=== PATIENT | male | born 1970 | race Asian ===

== ENCOUNTER 2017-05-01 11:51 | Emergency (ER) | payer MEDICAID ==
--- NOTE | 2017-05-01 12:11 | ER Document Report ---
ED GI Bleed / Rectal Pain - General Mode of Arrival: Ambulatory Information source: Patient, Relative TRAVEL OUTSIDE OF THE [place] IN LAST 30 DAYS: No <JORDAN GONZALEZ - Last Filed: 05/01/17 12:57> <JOSUE BAUTISTA - Last Filed: 05/01/17 17:42> - General Chief Complaint: Bloody Stools Stated Complaint: ABDOMINAL PAIN Time Seen by Provider: 05/01/17 12:09 Notes: 47-year-old Mandarin speaking male translated by barbie at bedside complaining of constipation for 1 week with associated dark red blood coming from rectum. Patient states he has a "mass" in his rectum. Patient is having difficulty ambulating, sitting, and going to the bathroom secondary to rectal pain. Patient denies any abdominal pain. (JORDAN GONZALEZ) - Related Data Allergies/Adverse Reactions: No Known Allergies Allergy (Unverified 10/16/14 15:07) Past Medical History - General Information source: Patient - Social History Family History: Reviewed & Not Pertinent <JORDAN GONZALEZ - Last Filed: 05/01/17 12:57> Review of Systems - Review of Systems Gastrointestinal: See HPI, Constipation, Rectal bleeding. denies: Abdominal pain <JORDAN GONZALEZ - Last Filed: 05/01/17 12:57> <JOSUE BAUTISTA - Last Filed: 05/01/17 17:42> - Review of Systems Notes: translated by barbie at bedside (JORDAN GONZALEZ) Physical Exam - General General appearance: Appears well, Alert - HEENT Head: Normocephalic, Atraumatic Eyes: Normal Conjunctiva: Normal - Respiratory Respiratory status: No respiratory distress Chest status: Nontender Breath sounds: Normal - Abdominal Inspection: Normal Distension: No distension Tenderness: Nontender <JORDAN GONZALEZ - Last Filed: 05/01/17 12:57> - Vital signs Vitals: Temp Pulse Resp BP Pulse Ox 99.2 F 92 16 136/93 H 96 05/01/17 11:55 05/01/17 11:55 05/01/17 11:55 05/01/17 11:55 05/01/17 11:55 Course <JORDAN GONZALEZ - Last Filed: 05/01/17 12:57> - Laboratory Result Diagrams: 05/01/17 12:50 05/01/17 12:50 <JOSUE BAUTISTA - Last Filed: 05/01/17 17:42> - Re-evaluation Re-evalutation: 05/01/17 17:41 I have greeted and performed a rapid initial assessment of this patient. A comprehensive ED assessment with additional diagnostic/treatment considerations , analysis of diagnostic testing and completion of the medical decision making process will be conducted by additional ED providers. (JOSUE BAUTISTA) - Vital Signs Vital signs: Temp Pulse Resp BP Pulse Ox 99.2 F 92 16 136/93 H 96 05/01/17 11:55 05/01/17 11:55 05/01/17 11:55 05/01/17 11:55 05/01/17 11:55 - Laboratory Laboratory results interpreted by me: 05/01/17 05/01/17 12:50 12:50 RBC 4.27 L Hgb 13.3 L Urine Blood SMALL H Scribe Documentation - Scribe Written by Mary:: Mary Soto, 05/01/2017 1259 acting as scribe for :: Lanie <JORDAN GONZALEZ - Last Filed: 05/01/17 12:57>
[2017-05-01 13:14] LABS: AMORPHOUS SEDIMENT,URINE TRACE /HPF; APPEARANCE,URINE CLEAR; BILIRUBIN,URINE NEGATIVE (NEGATIVE); COLOR,URINE YELLOW; GLUCOSE, URINE NEGATIVE (NEGATIVE); KETONES,URINE NEGATIVE (NEGATIVE); LEUKOCYTE ESTERASE,URINE NEGATIVE (NEGATIVE); NITRITE,URINE NEGATIVE (NEGATIVE); PROTEIN,URINE NEGATIVE (NEGATIVE); URINE SPECIFIC GRAVITY 1.011; UROBILINOGEN,URINE NEGATIVE mg/dL (<2.0)
[2017-05-01 13:15] LABS: INTERNATIONAL RATION (INR) 0.92
[2017-05-01 13:17] LABS: ABSOLUTE EOSINOPHILS # (AUTO) 0.1 10^3/uL (0.0-0.6); ABSOLUTE LYMPHOCYTES (AUTO) 1.9 10^3/uL (0.5-4.7); ABSOLUTE MONOCYTES (AUTO) 0.7 10^3/uL (0.1-1.4); ABSOLUTE NEUT (AUTO) 5.4 10^3/uL (1.7-8.2); BASOPHILS % (AUTO) 0.3 % (0-2); EOSINOPHILS % (AUTO) 1.7 % (0-6); HEMATOCRIT 39.6 % (37.9-51.0); HEMOGLOBIN 13.3 g/dL (13.5-17.0); LYMPHOCYTES % (AUTO) 22.9 % (13-45); MEAN CORPUSCULAR HEMOGLOBIN 31.2 pg (27.0-33.4); MEAN CORPUSCULAR HGB CONC 33.7 g/dL (32.0-36.0); MEAN CORPUSCULAR VOLUME 93 fl (80-97); MONOCYTES % (AUTO) 8.8 % (3-13); PLATELET COUNT 247 10^3/uL (150-450); RED BLOOD COUNT 4.27 10^6/uL (4.35-5.55); RED CELL DISTRIBUTION WIDTH 13.2 % (11.5-14.0); SEGMENTED NEUTROPHILS % (AUTO) 66.3 % (42-78); TOTAL CELLS COUNTED % (AUTO) 100 %; WHITE BLOOD COUNT 8.2 10^3/uL (4.0-10.5)
[2017-05-01 13:33] LABS: ALANINE AMINOTRANSFERASE 34 U/L (21-72); ALBUMIN 4.6 g/dL (3.5-5.0); ALKALINE PHOSPHATASE 65 U/L (38-126); ANION GAP 11 (5-19); ASPARTATE AMINO TRANSFERASE 28 U/L (17-59); BILIRUBIN,DIRECT 0.2 mg/dL (0.0-0.4); BILIRUBIN,TOTAL 1.2 mg/dL (0.2-1.3); BLOOD UREA NITROGEN 13 mg/dL (7-20); CALCIUM 10.2 mg/dL (8.4-10.2); CARBON DIOXIDE 30 mmol/L (22-30); CHLORIDE 103 mmol/L (98-107); GLUCOSE 93 mg/dL (75-110); SODIUM 143.7 mmol/L (137-145); TOTAL PROTEIN 7.9 g/dL (6.3-8.2)
--- NOTE | 2017-05-01 14:30 | ER Document Report ---
ED General - General Chief Complaint: Bloody Stools Stated Complaint: ABDOMINAL PAIN Time Seen by Provider: 05/01/17 12:09 Mode of Arrival: Ambulatory Notes: 47-year-old Spanish speaking only patient to the emergency department complaining of constipation with a feeling of fullness in his rectum. Cannot get comfortable. Having difficulty having bowel movements and now bleeding when he has bowel movements. Denies any previous history. Visiting from out of town. Normally lives in [facility] [place]. States that he does not have any medical problems. Denies taking any medications. TRAVEL OUTSIDE OF THE [place] IN LAST 30 DAYS: No - HPI Onset: Last week Onset/Duration: Gradual Quality of pain: Pressure Severity: Moderate Pain Level: 3 Associated symptoms: Other - Blood in stool - Related Data Allergies/Adverse Reactions: No Known Allergies Allergy (Unverified 10/16/14 15:07) Past Medical History - General Information source: Patient - Social History Smoking Status: Current Every Day Smoker Chew tobacco use (# tins/day): No Frequency of alcohol use: None Drug Abuse: None Family History: Reviewed & Not Pertinent Patient has suicidal ideation: No Patient has homicidal ideation: No Renal/ Medical History: Denies: Hx Peritoneal Dialysis Review of Systems - Review of Systems Constitutional: No symptoms reported EENT: No symptoms reported Cardiovascular: No symptoms reported Respiratory: No symptoms reported Gastrointestinal: Abdomen distended, Abdominal pain, Constipation, Rectal bleeding. denies: Black stools Genitourinary: No symptoms reported Male Genitourinary: No symptoms reported Musculoskeletal: No symptoms reported Skin: No symptoms reported Hematologic/Lymphatic: No symptoms reported Neurological/Psychological: No symptoms reported Physical Exam - Vital signs Vitals: Temp Pulse Resp BP Pulse Ox 99.2 F 92 16 136/93 H 96 05/01/17 11:55 05/01/17 11:55 05/01/17 11:55 05/01/17 11:55 05/01/17 11:55 Interpretation: Normal - General General appearance: Appears well, Alert In distress: Mild Notes: Uncomfortable appearing - HEENT Head: Normocephalic, Atraumatic Eyes: Normal Pupils: PERRL - Respiratory Respiratory status: No respiratory distress Chest status: Nontender Breath sounds: Normal Chest palpation: Normal - Cardiovascular Rhythm: Regular Heart sounds: Normal auscultation Murmur: No - Abdominal Inspection: Normal Distension: No distension Bowel sounds: Normal Tenderness: Nontender Organomegaly: No organomegaly - Rectal Hemorrhoids: Internal, External, Mass Notes: He has a large prolapse with large prolapsing internal hemorrhoids. Approximate size of a golf ball - Back Back: Normal, Nontender - Extremities General upper extremity: Normal inspection, Nontender, Normal color, Normal ROM , Normal temperature General lower extremity: Normal inspection, Nontender, Normal color, Normal ROM , Normal temperature, Normal weight bearing. No: Noni's sign - Neurological Neuro grossly intact: Yes Cognition: Normal Orientation: AAOx4 [place] Coma Scale Eye Opening: Spontaneous [place] Coma Scale Verbal: Oriented [place] Coma Scale Motor: Obeys Commands [place] Coma Scale Total: 15 Speech: Normal Motor strength normal: LUE, RUE, LLE, RLE Sensory: Normal - Psychological Associated symptoms: Normal affect, Normal mood - Skin Skin Temperature: Warm Skin Moisture: Dry Skin Color: Normal Course - Re-evaluation Re-evalutation: 05/01/17 18:37 Patient with a large prolapse with golf ball size internal prolapsed hemorrhoids. Gentle pressure was applied for approximately 10 minutes to reduce the prolapse. Patient instructed to lie on stomach. Hydrated with fluid. Ativan given for relaxation. CT scan ordered. CT scan unremarkable. Labs unremarkable. Lactulose was given to help with stool softening. Will place patient on a bowel regimen at this time. Follow-up information will be given to to him for a general surgeon. - Vital Signs Vital signs: Temp Pulse Resp BP Pulse Ox 99.2 F 92 16 136/93 H 96 05/01/17 11:55 05/01/17 11:55 05/01/17 11:55 05/01/17 11:55 05/01/17 11:55 - Laboratory Result Diagrams: 05/01/17 12:50 05/01/17 12:50 Laboratory results interpreted by me: 05/01/17 05/01/17 12:50 12:50 RBC 4.27 L Hgb 13.3 L Urine Blood SMALL H Discharge - Discharge Clinical Impression: Hemorrhoids that prolapse with straining and require manual replacement back inside anal canal Condition: Good Disposition: HOME, SELF-CARE Instructions: Hemorrhoids ([facility]) Prescriptions: Lactulose 10 gm PO BID 10 Days #300 ml Polyethylene Glycol 3350 [Miralax] 1 cap PO BID 10 Days #1 powder
--- NOTE | 2017-05-01 14:53 | RADIOLOGY REPORT (SQ) ---
EXAM DESCRIPTION: ACUTE ABDOMEN SERIES COMPLETED DATE/TIME: 05/01/2017 2:46 pm REASON FOR STUDY: abd pain COMPARISON: None. NUMBER OF VIEWS: Three views. TECHNIQUE: Frontal chest, supine abdomen and upright/decubitus abdomen radiographic images acquired. LIMITATIONS: None. FINDINGS: CHEST: Lungs clear of infiltrates. FREE AIR: None. No abnormal gas collections. BOWEL GAS PATTERN: Nonobstructive pattern. No dilated loops or air fluid levels. CALCIFICATIONS: No suspicious calcifications. HARDWARE: None in the abdomen. SOFT TISSUES: No gross mass or suggestion of organomegaly. BONES: No acute fracture. No worrisome bone lesions. OTHER: No other significant finding. IMPRESSION: NO RADIOGRAPHIC EVIDENCE FOR ACUTE ABDOMINAL DISEASE. TECHNICAL DOCUMENTATION: JOB ID: [id number] [employer]- All Rights Reserved
[2017-05-01] MEDS ORDERED: LACTULOSE SYRUP 20 GM/30 ML UDCUP PO ONE (15:19)
[2017-05-01] MEDS ORDERED: LORAZEPAM INJ 2 MG/1 ML VIAL IV ONE (15:21)
[2017-05-01] MEDS: NORMAL SALINE 1000 ML 1,000 ML IV PRN ×2 (16:29→16:30)
--- NOTE | 2017-05-01 18:33 | RADIOLOGY REPORT (SQ) ---
EXAM DESCRIPTION: CT ABD/PELVIS WITH IV ORAL COMPLETED DATE/TIME: 05/01/2017 6:08 pm REASON FOR STUDY: abd pain COMPARISON: 10/16/2014 TECHNIQUE: CT scan of the abdomen and pelvis performed using helical scanning technique with dynamic intravenous contrast injection. No oral contrast. Images reviewed with lung, soft tissue, and bone windows. Reconstructed coronal and sagittal MPR images reviewed. Delayed images for evaluation of the urinary system also acquired. All images stored on PACS. All CT scanners at this facility use dose modulation, iterative reconstruction, and/or weight based d osing when appropriate to reduce radiation dose to as low as reasonably achievable (ALARA). [facility]: Dose Right [facility]: CareDose [facility]: Dose Right [facility]: Teradose 4D [facility]: [employer] CONTRAST TYPE AND DOSE: contrast/concentration: Isovue 370.00 mg/ml; Total Contrast Delivered: 79.0 ml; Total Saline Delivered: 68.1 ml RENAL FUNCTION: None required. The patient is less than 50 years old. RADIATION DOSE: CT Rad equipment meets quality standard of care and radiation dose reduction techniq ues were employed. CTDIvol: 5.9 - 8.2 mGy. DLP: 675 mGy-cm.. LIMITATIONS: None. FINDINGS: LOWER CHEST: No significant findings. No nodules or infiltrates. LIVER: Normal size. No masses. No dilated ducts. SPLEEN: Normal size. No focal lesions. PANCREAS: No masses. No significant calcifications. No adjacent inflammation or peripancreatic fluid collections. Pancreatic duct not dilated. GALLBLADDER: No identified stones by CT criteria. No inflammatory changes to suggest cholecystitis. ADRENAL GLANDS: No significant masses or asymmetry. RIGHT KIDNEY AND URETER: No solid masses. No significant calcifications. No hydronephrosis or hyd roureter. LEFT KIDNEY AND URETER: No solid masses. No significant calcifications. No hydronephrosis or hydr oureter. AORTA AND VESSELS: No aneurysm. No dissection. Renal arteries, SMA, celiac without stenosis. RETROPERITONEUM: No retroperitoneal adenopathy, hemorrhage or masses. BOWEL AND PERITONEAL CAVITY: No masses or inflammatory changes. No free fluid or peritoneal masses. APPENDIX: Normal. PELVIS: No mass. No free fluid. Normal bladder. ABDOMINAL WALL: Tiny fat containing umbilical hernia. BONES: Incidental note is made of sacralization of the L5 element. OTHER: No other significant finding. IMPRESSION: NO SIGNIFICANT OR ACUTE FINDING IN THE ABDOMEN OR PELVIS ON CT SCAN WITH IV CONTRAST. TECHNICAL DOCUMENTATION: JOB ID: [id number] Quality ID # [id number]: Final reports with documentation of one or more dose reduction techniques (e.g., Au tomated exposure control, adjustment of the mA and/or kV according to patient size, use of iterative reconstruction technique) 2010 [employer]- All Rights Reserved
[2017-05-01 19:21] VITALS: BP 121/88
== END 2017-05-01 19:20 | disposition home or self-care (01) ==
LOC: ER 11:51
DX: K64.9 Unspecified hemorrhoids (principal); R19.5 Other fecal abnormalities; R10.9 Unspecified abdominal pain; K59.00 Constipation, unspecified; F17.200 Nicotine dependence, unspecified, uncomplicated
CPT/HCPCS: 99284; 96361; 96374; 86900; 86901; 36415; 86850; 83690; 85025; 85610; 80053; 81001; 74022; 74177; J2060; J7030